=== PATIENT | female | born 1990 | race Caucasian/White ===

== ENCOUNTER → 2016-08-04 | Outpatient (CLI) | payer BC ==
[~2016-08-04] MED LIST: NO MEDICATIONS; PANTOPRAZOLE SO40 MG PO
--- NOTE | ~2016-08-04 | NM19 ---
[facility] A Service of [facility] & [facility] RADIOLOGY TEXT RESULTS PATIENT: BONG BAUMAN LOCATION: CNUC : [birth year] UNIT #: [id number] AGE: [address]: NEELA MALAVE APRN SEX: F ORDER DR: [id number] [facility] [address] [place], [place] [address] [id number] O MR#: [id number] Acc #: [id number] NAME: BONG BAUMAN : 1990 SEX: F STUDY DATE/TIME: 08/04/2016 9:29 UNIT: [facility] ROOM: STUDY DESCRIPTION: [place] Gastric Emptying Study Attending Physician: Neela Malave Aprn Referring Physician: Neela Malave Aprn Ordering Physician: Neela Malave Aprn Primary Care Physician: Faisal Anaya M.D. MEDICAL IMAGING REPORT This report is preliminary unless electronic signature is present EXAM Gastric emptying scan 08/04/2016 HISTORY Nausea and vomiting, primarily in the morning with constipation, gastroesophageal reflux symptoms for 15 years worsening in the past 4 years. FINDINGS The patient ingested 582 microcuries of technetium 99m tagged sulfur colloid in eggs. Images of the upper abdomen were obtained for 4 hours. After 1 hour the stomach was 30% empty and after 2 hours the stomach was 63% empty. After 4 hours the stomach was 97% empty. Normal range is greater than 60% empty after 2 hours of imaging and greater than 90% empty after 4 hours of imaging. IMPRESSION Normal gastric emptying after 2 and 4 hours of imaging. Dictated by... Lex Cameron M.D. THIS IS AN ELECTRONICALLY VERIFIED REPORT Lex Cameron M.D. at 08/04/2016 4:31 PM Sabra TD: 08/04/2016 15:36 JOB #: [id number] MEDICAL IMAGING REPORT Page 1 of 1 COPY
== END | disposition home or self-care (01) ==
LOC: CNUC 08:53
DX: R11.2 Nausea with vomiting, unspecified (principal)
CPT/HCPCS: 78264; A9541

== ENCOUNTER → 2016-08-30 | Day surgery (SDC) | payer BC ==
--- NOTE | ~2016-08-30 | OR ---
Unit #: [id number] #: [id number] Patient: BONG BAUMAN [id number] [address] [place], [place] [address] [id number] O MR#: [id number] NAME: BONG BAUMAN ROOM: Date of Procedure: 08/30/2016 Admission Date: 08/30/2016 Surgeon: Jonathan Stevenson M.D. : 1990 Attending Physician: Jonathan Stevenson M.D. Referring Physician: Jonathan Stevenson M.D. Primary Care Physician: Faisal Anaya M.D. OPERATIVE REPORT PREOPERATIVE DIAGNOSES The patient has history of intermittent nausea for the past several months. She gets good days and bad days. On the day, she is nauseous all day long and is not particularly related to meals. Despite this, she has put on weight. She denies any depression; although, according to her mom and aunt, she tends to internalize her feeling. She lost her father from a motorcycle accident at the age of 52 last year. The patient has come for elective upper endoscopy. PROCEDURES PERFORMED Upper gastrointestinal endoscopy and biopsy. POSTOPERATIVE DIAGNOSES The patient had grade 1 distal erosive esophagitis. There were linear erosions at the Z-line in the distal esophagus. Otherwise, examination was normal up to third part of duodenum. Biopsies were obtained from the antrum for CLOtest. RECOMMENDATIONS Consider pantoprazole 40 mg p.o. daily. The patient will be seen in the office in 6 to 8 weeks' time. If she is still symptomatic, she will require an outpatient ultrasound and a HIDA scan. It is noteworthy that her gastric emptying study was normal. SEDATION USED MAC. DESCRIPTION OF PROCEDURE Following detailed explanation of the potential risks and complications of an upper endoscopy, namely perforation, bleeding, and complications related to sedation, the patient was brought to GI lab and laid in the left lateral decubitus position. Lubricated tip of the Olympus video upper endoscope was passed through the bite block into the proximal esophagus and advanced under vision. The entire esophageal mucosa was examined and appeared normal except for presence of grade 1 distal erosive esophagitis with linear erosions in the distal esophagus at the gastroesophageal junction. The scope was then advanced into the gastric cavity and the latter was insufflated. Mucosa of the fundus, body, and antrum was examined and appeared unremarkable. Pylorus was intubated with visualization of the normal duodenal bulb and second and third part of the duodenum. Upon withdrawal and retroflexion; incisura, cardia, and greater curve was examined and biopsy was obtained from the antrum for CLOtest. Unit #: [id number] #: [id number] Patient: BONG BAUMAN The scope was then withdrawn in the distal esophagus. Entire esophageal mucosa was examined all the way up to pharynx and no additional findings were noted. The patient tolerated the procedure without any postprocedure complications. Dictated by... Brenden Goodson/beth TD: 08/30/2016 11:32 JOB #: [id number] OPERATIVE REPORT Page 1 of 1 X Jonathan Stevenson MD X PROCEDURE OPERATIVE NOTE
== END | disposition home or self-care (01) ==
LOC: COPS 06:13
DX: K22.10 Ulcer of esophagus without bleeding (principal); K21.9 Gastro-esophageal reflux disease without esophagitis; Z88.6 Allergy status to analgesic agent; Z98.890 Other specified postprocedural states
CPT/HCPCS: 84703; 87077

== ENCOUNTER → 2016-10-18 | Outpatient (CLI) | payer BC ==
--- NOTE | ~2016-10-18 | US6 ---
[facility] A Service of [facility] & [facility] RADIOLOGY TEXT RESULTS PATIENT: BONG BAUMAN LOCATION: CNUC : [birth year] UNIT #: [id number] AGE: [address]: NEELA MALAVE APRN SEX: F ORDER DR: [id number] [facility] [address] [place], [place] [address] [id number] O MR#: [id number] Acc #: [id number] NAME: BONG BAUMAN : 1990 SEX: F STUDY DATE/TIME: 10/18/2016 8:14 UNIT: [facility] ROOM: STUDY DESCRIPTION: US Abdominal Limited Attending Physician: Neela Malave Aprn Referring Physician: Neela Malave Aprn Ordering Physician: Neela Malave Aprn Primary Care Physician: Faisal Anaya M.D. MEDICAL IMAGING REPORT This report is preliminary unless electronic signature is present EXAM Right upper quadrant ultrasound INDICATIONS Nausea for 15 years but worse over the past 2 years TECHNIQUE Alcala-scale and color sonographic images were obtained through the right upper quadrant. FINDINGS Pancreas appears unremarkable. Liver is homogeneous in echotexture and measures within normal size limits. No masses are seen. There is no intra or extrahepatic biliary dilatation. Right kidney is normal in appearance with no solid or cystic renal masses seen and no hydronephrosis identified. Gallbladder also appears normal with no stones or sludge seen and no gallbladder wall thickening or pericholecystic fluid. IMPRESSION Negative right upper quadrant ultrasound. Dictated by... Janice Henley M.D. THIS IS AN ELECTRONICALLY VERIFIED REPORT Janice Henley M.D. at 10/18/2016 4:19 PM AFF/to TD: 10/18/2016 14:42 JOB #: [id number] MEDICAL IMAGING REPORT Page 1 of 1 COPY
--- NOTE | ~2016-10-18 | NM22 ---
[facility] A Service of [facility] & [facility] & [facility] RADIOLOGY TEXT RESULTS PATIENT: BONG BAUMAN LOCATION: CNUC : [birth year] UNIT #: [id number] AGE: [address]: NEELA MALAVE APRN SEX: F ORDER DR: [id number] [facility] [address] [place], [place] [address] [id number] O MR#: [id number] Acc #: [id number] NAME: BONG BAUMAN : 1990 SEX: F STUDY DATE/TIME: 10/18/2016 8:43 UNIT: [facility] ROOM: STUDY DESCRIPTION: [place] Hepatobiliary W GB Pharm Attending Physician: Neela Malave Aprn Referring Physician: Neela Malave Aprn Ordering Physician: Neela Malave Aprn Primary Care Physician: Faisal Anaya M.D. MEDICAL IMAGING REPORT This report is preliminary unless electronic signature is present EXAM Hepatobiliary scan INDICATION Nausea, epigastric abdominal pain for the past 12 years. PROCEDURE Patient administered 4.41 mCi technetium labeled Choletec. Imaging of the upper abdomen was performed for 60 minutes then patient was administered 1.5 mcg of Kinevac IV per protocol. COMPARISON Right upper quadrant ultrasound, 10/18/2016 FINDINGS Liver shows symmetric extraction and excretion of the radiotracer. Gallbladder fills by 30 minutes. Ejection fraction is 86.7% at 30 minutes. IMPRESSION Normal. Dictated by... Armen Mosley M.D. THIS IS AN ELECTRONICALLY VERIFIED REPORT Armen Mosley M.D. at 10/19/2016 7:09 AM Daljit TD: 10/18/2016 16:12 JOB #: [id number] MEDICAL IMAGING REPORT Page 1 of 1 COPY
== END | disposition home or self-care (01) ==
LOC: CNUC 07:00
DX: R11.2 Nausea with vomiting, unspecified (principal); K59.09 Other constipation
CPT/HCPCS: 76705; 78227; A9537; J2805